=== PATIENT | female | born 1980 | race Two or more races ===

== ENCOUNTER 2019-08-23 17:03 | Inpatient (IN) | payer OTHER ==
[~2019-08-23] VITALS: Ht 160 cm; Wt 70.7 kg
[2019-08-23] MEDS ORDERED: SODIUM CHLORIDE 0.9% 1,000 ML IV ONE (17:07)
[2019-08-23 17:27] LABS: Basophils # (auto) 0 10 ^3/uL (0-0.2); Basophils % (auto) 0.3 % (0.0-2.0); Eosinophils # (auto) 0.1 10 ^3/uL (0-0.8); Eosinophils % (auto) 1.2 % (0.0-7.0); Hematocrit 39.5 % (36.0-46.0); Hemoglobin 12.8 g/dL (12.2-16.2); Lymphocytes # (auto) 2.4 10 ^3/uL (0.4-5.4); Mean Corpuscular Hemoglobin 27.8 pg (28.0-32.0); Mean Corpuscular Hgb Conc. 32.5 g/dL (32.0-36.0); Mean Corpuscular Volume 85.5 fL (80.0-100.0); Monocytes # (auto) 0.5 10 ^3/uL (0-1.3); Monocytes % (auto) 6.9 % (0.0-12.0); Neutrophils # (auto) 3.8 10 ^3/uL (1.6-8.6); Neutrophils % (auto) 56.6 % (37.0-80.0); Platelet Count (auto) 233 10^3/uL (140-450); Red Blood Cells 4.62 10^6/uL (4.0-5.20); Red Cell Distribution Width 15.5 % (11.8-14.3); White Blood Cell 6.7 10^3/uL (4.4-10.8)
[2019-08-23 17:40] LABS: Albumin 3.7 g/dL (3.4-5.0); Anion Gap 7 (5-15); Blood Urea Nitrogen 17 mg/dL (7-18); Calcium 9.5 mg/dL (8.5-10.1); Carbon Dioxide 23 mmol/L (21-32); Chloride 109 mmol/L (98-107); Glucose 102 mg/dL (74-106); Magnesium 2.4 mg/dL (1.6-2.6); Potassium 3.2 mmol/L (3.5-5.1); Sodium 139 mmol/L (136-145)
[2019-08-23 17:42] LABS: INR 1.01 (0.9-1.15); Partial Thromboplastin Time 26.2 sec (23.64-32.05)
[2019-08-23 17:46] LABS: Alanine Aminotransferase 39 U/L (13-56); Alkaline Phosphatase 91 U/L (45-117); Aspartate Aminotransferase 26 U/L (15-37); BUN/Creatinine Ratio 20.7; Bilirubin, Total 0.3 mg/dL (0.2-1.0); GFR African American 100 mL/min; GFR Non-African American 82 mL/min; Total Protein 7.6 g/dL (6.4-8.2)
[2019-08-23] MEDS: MORPHINE SULF INJ 2 MG/ML SYRINGE 1ML IV PRN (17:54)
[2019-08-23] MEDS ORDERED: POTASSIUM EFFERVESENT TAB 25 MEQ PO ONE (18:00)
[2019-08-23] MEDS: SODIUM CHLORIDE 0.9% 1,000 ML IV SCH (20:25)
[2019-08-23] MEDS ORDERED: ACETAMINOPHEN 325 MG TAB PO PRN (20:30)
[2019-08-23] MEDS ORDERED: LORazepam 0.5 MG TAB PO PRN (20:30)
[2019-08-23] MEDS ORDERED: ZOLPIDEM TARTRATE 5 MG TAB PO PRN (20:30)
[2019-08-23 21:30] VITALS: BP 138/94
--- NOTE | 2019-08-23 21:30 | NUR ---
Telemetry admit from [facility] admitted to Telemetry unit. Patient oriented to YESENIA VALLES RN primary RN, unit, room 250, bed B, and unit policies regarding patient care and visiting hours. Patient now on continuous telemetry monitoring. Patient weighed by bedscale and encouraged to call if they need something. All questions and concerns addressed, patient verbalized understanding.
[2019-08-23 21:53] LABS: Urine Amorphous Crystal FEW /hpf (None Seen); Urine Bacteria NONE SEEN /hpf (None Seen); Urine Blood Negative /uL (Negative); Urine Specific Gravity 1.022 (1.001-1.035); Urine WBC 16 /hpf (0 - 5); Urine WBC Clumps PRESENT /hpf (None Seen)
--- NOTE | 2019-08-23 21:58 | NUR ---
PAGED HOSPITALIST Patient reporting that she reacts strongly to Coreg medication and she remembers that the ordered dose may be too high for her. She wanted me to ask hospitalist about this medication to see if she can receive a lower dose.
[2019-08-23] MEDS: CARVEDILOL 3.125 MG TAB PO SCH (22:00)
[2019-08-23] MEDS ORDERED: ATORVASTATIN 20 MG TAB PO SCH (22:00)
[2019-08-23] MEDS: LORATADINE 10 MG TAB PO SCH (22:05)
[2019-08-23] MEDS: ONDANSETRON HCL 4 MG/2 ML VIAL IV PRN (23:10)
--- NOTE | 2019-08-23 23:37 | NUR ---
PAGED HOSPITALIST: CRITICAL LAB Troponin at 28.4 new orders to do EKG and call MD Carlisle.
--- NOTE | 2019-08-23 23:38 | NUR ---
PATIENT REFUSED 2200 MEDICATION PATIENT REFUSED COREG. EXPLAINED MEDICATION AND PURPOSE. PATIENT VERBALIZED UNDERSTANDING AND STILL REFUSING. MD CUETO WAS NOTIFIED.
--- NOTE | 2019-08-24 00:08 | NUR ---
RECEIVED CALL BACK FROM MD DIAZ New orders received. Orders were read back and confirmed. Will continue care
[2019-08-24] MEDS ORDERED: ENOXAPARIN SOD 30 MG/0.3 ML SYRINGE IV ONE (00:15)
[2019-08-24 01:25] LABS: Urine Bacteria FEW /hpf (None Seen); Urine Blood Negative /uL (Negative); Urine Mucus FEW (None Seen); Urine Specific Gravity 1.008 (1.001-1.035); Urine WBC 1 /hpf (0 - 5)
--- NOTE | 2019-08-24 02:23 | NUR ---
CHANGE OF RHYTHM Run of V-tach. EKG done. VS 120/74 HR 77 O2: 100 on room air Patient reporting chest pain rating between 4-7 every 10 minutes. Patient states it is nonradiating. EKG taken down to MD pascal who reviewed it and signed off on the EKG when patient experience Vtach. Updated MD on patient's condition. Will notify MD Carlisle of change
[2019-08-24] MEDS: MORPHINE SULF INJ 2 MG/ML SYRINGE 1ML IV PRN ×2 (03:09→13:34)
[2019-08-24] MEDS: ONDANSETRON HCL 4 MG/2 ML VIAL IV PRN ×3 (03:10→13:34)
[2019-08-24 05:30] VITALS: BP 127/65
[2019-08-24] MEDS ORDERED: IBUP800T24 PO (05:50)
[2019-08-24 06:05] LABS: Basophils # (auto) 0 10 ^3/uL (0-0.2); Basophils % (auto) 0.2 % (0.0-2.0); Eosinophils # (auto) 0 10 ^3/uL (0-0.8); Eosinophils % (auto) 0.5 % (0.0-7.0); Hemoglobin 12.8 g/dL (12.2-16.2); Lymphocytes % (auto) 15.3 % (10.0-50.0); Mean Corpuscular Hemoglobin 28.1 pg (28.0-32.0); Mean Corpuscular Hgb Conc. 32.7 g/dL (32.0-36.0); Mean Corpuscular Volume 85.8 fL (80.0-100.0); Monocytes # (auto) 0.5 10 ^3/uL (0-1.3); Monocytes % (auto) 7.1 % (0.0-12.0); Neutrophils # (auto) 5.2 10 ^3/uL (1.6-8.6); Neutrophils % (auto) 76.9 % (37.0-80.0); Platelet Count (auto) 199 10^3/uL (140-450); Red Blood Cells 4.55 10^6/uL (4.0-5.20); White Blood Cell 6.7 10^3/uL (4.4-10.8)
[2019-08-24 06:36] LABS: Albumin 3.2 g/dL (3.4-5.0); Calcium 8.8 mg/dL (8.5-10.1); Potassium 3.9 mmol/L (3.5-5.1)
[2019-08-24 06:41] LABS: BUN/Creatinine Ratio 14.3; Bilirubin, Total 0.4 mg/dL (0.2-1.0); Total Protein 6.8 g/dL (6.4-8.2)
[2019-08-24] MEDS ORDERED: IOHEXOL 350 MG/ML 100ML IJ ONE (08:06)
--- NOTE | 2019-08-24 08:23 | NUR ---
OFF FLOOR TO LIE DETECTOR OPERATOR.
[2019-08-24] MEDS ORDERED: LIDOCAINE 2%HCL (LOCAL ANESTH.) INJ 20ML MDV ONE (09:01)
[2019-08-24 09:12] VITALS: BP 127/86
[2019-08-24] MEDS ORDERED: ANGIOMAX 250 MG VIAL IV ONE (09:19)
[2019-08-24] MEDS ORDERED: fentaNYL CITRATE 100 MCG/2 ML VL ONE (09:19)
[2019-08-24] MEDS ORDERED: MIDAZOLAM HCL 1MG/1ML-2 ML VIAL ONE (09:20)
[2019-08-24] MEDS ORDERED: SODIUM CHL 0.9% 0 ML ONE (09:20)
[2019-08-24] MEDS: DOCUSATE SOD 100 MG CAP PO SCH ×2 (10:00→12:56)
[2019-08-24] MEDS ORDERED: ASPirin 81 mg TAB PO SCH (10:00)
[2019-08-24] MEDS ORDERED: CLOPIDOGREL BISULFATE 75 MG TAB PO SCH (10:00)
[2019-08-24] MEDS: LISINOPRIL 20 MG TAB PO SCH ×2 (10:00→12:59)
[2019-08-24] MEDS: CARVEDILOL 3.125 MG TAB PO SCH ×2 (10:00→12:56)
[2019-08-24] MEDS ORDERED: ENOXAPARIN SOD 60 MG/0.6 ML SYRINGE SC SCH (10:00)
[2019-08-24] MEDS ORDERED: CLOPIDOGREL 300 MG TAB ONE (10:04)
--- NOTE | 2019-08-24 11:30 | NUR ---
BACK TO ROOM FROM CHARGE AUDITOR. VS 127/84, 64 HR, NO BLEEDING AT RIGHT GROIN SITE, NO S/S OF HEMATOMA. LOWER EXTREMETIES WARM BILATERALY, 2+ PEDAL PULSES, SENSATION INTACT, ABLE TO WIGGLE TOES. PATIENT HAS NO COMPLAINTS OF PAIN AT THIS TIME.
[2019-08-24] MEDS: LORATADINE 10 MG TAB PO SCH (12:55)
[2019-08-24] MEDS: SODIUM CHLORIDE 0.9% 1,000 ML IV SCH (12:58)
[2019-08-24 13:00] VITALS: BP 124/74
--- NOTE | 2019-08-24 13:44 | NUR ---
MD AWARE PATIENT IS STILL HAVING THE SAME PAIN IN HER CHEST DESCRIBED CLENCHING THAT IS INTERMITTENT AND NOT SHARP. OTHERWISE PATIENT VS ARE WNL AND NO BLEEDING AT THE SITE. NEUROVASC INTACT LOWER EXTREMETY BILATERALLY.
[2019-08-24 15:56] VITALS: BP 127/84
--- NOTE | 2019-08-24 16:29 | NUR ---
PATIENT DC HOME WITH HOME HEALTH. HERITAGE TO F/U WITH CARDIO AND PRIMARY APPTS. EDUCATION GIVEN ON F/U, MEDICATIONS, REPORTABLE S/S, ACTIVITY AND DIET. PATIENT VERBALIZED UNDERSTANDING. IV REMOVED, TIP INTACT, DRESSING IN PLACE. RIGHT GROIN SITE DRESSING IS C/D/I WITH NO BLEEDING. EDUCATION GIVEN ON ANGIOSEAL. VITAL SIGNS WNL.
== END 2019-08-24 16:15 | disposition home health service (06) | DRG 190 ==
LOC: ER 17:03 → EDBD 17:03 → TELE 17:04 → TELE-EAST 21:30
PROVIDERS: ADMIT Hospitalist; ATTEND Internal Medicine
PROC: 4A023N7 Measurement of Cardiac Sampling and Pressure, Left Heart, Percutaneous Approach (ICD-10-PCS; principal; 2019-08-24)
PROC: B2111ZZ Fluoroscopy of Multiple Coronary Arteries using Low Osmolar Contrast (ICD-10-PCS; 2019-08-24)
PROC: B2151ZZ Fluoroscopy of Left Heart using Low Osmolar Contrast (ICD-10-PCS; 2019-08-24)
PROC: B2131ZZ Fluoroscopy of Multiple Coronary Artery Bypass Grafts using Low Osmolar Contrast (ICD-10-PCS; 2019-08-24)
PROC: B2181ZZ Fluoroscopy of Left Internal Mammary Bypass Graft using Low Osmolar Contrast (ICD-10-PCS; 2019-08-24)
DX: I21.4 Non-ST elevation (NSTEMI) myocardial infarction (principal); Z95.1 Presence of aortocoronary bypass graft; E87.6 Hypokalemia; I10 Essential (primary) hypertension; I25.110 Atherosclerotic heart disease of native coronary artery with unstable angina pectoris; Z79.82 Long term (current) use of aspirin; Z82.49 Family history of ischemic heart disease and other diseases of the circulatory system; Z88.8 Allergy status to other drugs, medicaments and biological substances
CPT/HCPCS: 36415; 71045; 80053; 80061; 81001; 83735; 84443; 84484; 84702; 85025; 85379; 85610; 85730; 86850; 86900; 86901; 93005; 93459; 99152; G0378; J2250; J2405